=== PATIENT | female | born 1995 | race Caucasian/White ===

== ENCOUNTER 2018-10-10 16:25 | Emergency (ER) | payer BC, OTHER ==
[2018-10-10] MEDS ORDERED: METOCLOPRAMIDE 10 MG/2 ML VIAL IVP ONE (18:30)
[2018-10-10] MEDS ORDERED: DEXAMETHASONE 10 MG/ML VIAL IVP ONE (18:30)
--- NOTE | 2018-10-10 18:34 | EDPHY ---
H & P Stated Complaint: headache no trauma x 3 days--feels like her usual "migraine" Time Seen by Provider: 10/10/18 17:51 HPI/ROS: CHIEF COMPLAINT: Migraine headache HISTORY OF PRESENT ILLNESS: 22-year-old female presents with a 3 day history of migraine headache. Onset of headache 2 days ago. The headache is right- sided and throbbing, associated with photophobia and nausea. The headache is currently mild, 3/10, but sometimes have increased to moderate. Ibuprofen, Aleve, Excedrin and Imitrex without relief. Similar to prior migraine headaches , but lasting longer. She takes Topamax daily for headaches. REVIEW OF SYSTEMS: complete 10 point ROS reviewed and is negative except for the noted elements in the HPI - Personal History LMP (Females 10-55): IUD In Place - Medical/Surgical History Hx Asthma: No Hx Chronic Respiratory Disease: No Hx Diabetes: No Hx Renal Disease: No Hx Cirrhosis: No Hx Alcoholism: No Hx HIV/AIDS: No Hx Splenectomy or Spleen Trauma: No Other PMH: migraines (lisinopril used for migraines) - Social History Smoking Status: Never smoked Alcohol Use: Sober - Physical Exam Exam: General Appearance: Alert, pleasant Eyes: Pupils equal and round, no conjunctival pallor ENT, Mouth: Mucous membranes moist Neck: Normal inspection Respiratory: Lungs are clear to auscultation Cardiovascular: Regular rate and rhythm Gastrointestinal: Abdomen is soft and nontender Neurological: Alert, oriented x3, cranial nerves II through XII intact, motor 5 /5, sensory intact to light touch, normal gait Skin: Warm and dry Extremities: Normal inspection Psychiatric: Mood and affect normal Constitutional: Initial Vital Signs Temperature (C) 36.7 C 10/10/18 16:50 Heart Rate 87 10/10/18 16:50 Respiratory Rate 16 10/10/18 16:50 Blood Pressure 106/68 10/10/18 16:50 O2 Sat (%) 97 10/10/18 16:50 O2 Delivery Mode Room Air Allergies/Adverse Reactions: No Known Allergies Allergy (Unverified 10/10/18 16:50) Home Medications: Medication Instructions Recorded Lisinopril 10/10/18 Montelukast Sodium 10/10/18 Topamax 10/10/18 Medical Decision Making ED Course/Re-evaluation: This patient presents with a typical migraine headache. Reglan, Benadryl and Decadron IV given. Patient feels much better after medications and like to go home. Differential Diagnosis: Headache including but not limited to subarachnoid hemorrhage, migraine headache , tension headache and infectious causes such as meningitis, pharyngitis and sinusitis. - Data Points Medications Given: Discontinued Medications Dexamethasone (Decadron Injection) 10 mg IVP EDNOW ONE Stop: 10/10/18 18:31 Last Admin: 10/10/18 18:40 Dose: 10 mg Diphenhydramine HCl (Benadryl Injection) 25 mg IVP EDNOW ONE Stop: 10/10/18 18:31 Last Admin: 10/10/18 18:40 Dose: 25 mg Sodium Chloride (Ns) 1,000 mls @ 0 mls/hr IV ONCE ONE; Wide Open PRN Reason: Protocol Stop: 10/10/18 18:36 Last Admin: 10/10/18 18:40 Dose: 1,000 mls Metoclopramide HCl (Reglan Injection) 10 mg IVP EDNOW ONE Stop: 10/10/18 18:31 Last Admin: 10/10/18 18:40 Dose: 10 mg Departure - Departure Disposition: Home, Routine, Self-Care Clinical Impression: Migraine headache Condition: Good Instructions: Migraine Headache (ED) Referrals: Delfino Vera MD [Medical Doctor] - As per Instructions
[2018-10-10] MEDS ORDERED: NS 1,000 ML IV ONE (18:35)
[2018-10-10 19:53] VITALS: BP 101/58
== END 2018-10-10 19:53 | disposition home or self-care (01) ==
DX: G43.909 Migraine, unspecified, not intractable, without status migrainosus (principal); E86.9 Volume depletion, unspecified
CPT/HCPCS: 96374; J1100; J1200; J2765

== ENCOUNTER 2018-10-12 16:04 | Emergency (ER) | payer OTHER ==
[2018-10-12] MEDS ORDERED: NS 1,000 ML IV ONE (16:22)
[2018-10-12] MEDS ORDERED: KETOROLAC 15 MG/1 ML SDV IVP/IM ONE (16:22)
[2018-10-12] MEDS ORDERED: HALOPERIDOL LACT 5 MG/ML INJ IVP ONE (16:22)
--- NOTE | 2018-10-12 16:28 | EDPHY ---
H & P Stated Complaint: JC Time Seen by Provider: 10/12/18 16:15 HPI/ROS: CHIEF COMPLAINT: Continued migraine HISTORY OF PRESENT ILLNESS: Patient is a 22-year-old female who comes to the emergency department complaining of persistent right-sided migraine. Occasional visual symptoms and photophobia. Also intermittent nausea but no vomiting. She was seen here on Friday with similar symptoms and felt slightly better after Reglan, fluids, Benadryl and Decadron. After returning home however headache resumed. She has been taking Topamax and sumatriptan at home without relief. No rash. No weakness or neurologic deficits. No fever. No trauma. No neck pain. She states that this is similar to previous migraines however more persistent. She would like to pursue imaging. Severity: Moderate Modifying factors: See above REVIEW OF SYSTEMS: Constitutional: denies: chills, fever, recent illness, recent injury EENTM: denies: blurred vision, double vision, nose congestion Respiratory: denies: cough, shortness of breath Cardiac: denies: chest pain, irregular heart rate, lightheadedness, palpitations Gastrointestinal/Abdominal: denies: abdominal pain, diarrhea, nausea, vomiting, blood streaked stools Genitourinary: denies: dysuria, frequency, hematuria, pain Musculoskeletal: denies: joint pain, muscle pain Skin: denies: lesions, rash, jaundice, bruising Neurological: See HPI denies: numbness, paresthesia, tingling, dizziness, weakness Hematologic/Lymphatic: denies: blood clots, easy bleeding, easy bruising Immunologic/allergic: denies: HIV/AIDS, transplant 10 systems reviewed and negative except as noted EXAM: GENERAL: Well-appearing, well-nourished and in no acute distress. HEAD: Atraumatic, normocephalic. EYES: Pupils equal round and reactive to light, extraocular movements intact, sclera anicteric, conjunctiva are normal. ENT: TMs normal, nares patent, oropharynx clear without exudates. Moist mucous membranes. NECK: Normal range of motion, supple without lymphadenopathy or JVD. LUNGS: Breath sounds clear to auscultation bilaterally and equal. No wheezes rales or rhonchi. HEART: Regular rate and rhythm without murmurs, rubs or gallops. ABDOMEN: Soft, nontender, normoactive bowel sounds. No guarding, no rebound. No masses appreciated. BACK: No CVA tenderness, no spinal tenderness, step-offs or deformities EXTREMITIES: Normal range of motion, no pitting or edema. No clubbing or cyanosis. NEUROLOGICAL: Cranial nerves II through XII grossly intact. Normal speech, normal gait. 5/5 strength, normal movement in all extremities, normal sensation , normal reflexes PSYCH: Normal mood, normal affect. SKIN: Warm, dry, normal turgor, no visible rashes or lesions. Source: Patient Exam Limitations: No limitations - Personal History Current Tetanus/Diphtheria Vaccine: Yes Current Tetanus Diphtheria and Acellular Pertussis (TDAP): Yes - Medical/Surgical History Hx Asthma: No Hx Chronic Respiratory Disease: No Hx Diabetes: No Hx Cardiac Disease: No Hx Renal Disease: No Hx Cirrhosis: No Hx Alcoholism: No Hx HIV/AIDS: No Hx Splenectomy or Spleen Trauma: No Other PMH: migraines (lisinopril used for migraines) - Family History Significant Family History: No pertinent family hx - Social History Smoking Status: Never smoked Alcohol Use: None Constitutional: Initial Vital Signs Temperature (C) 37 C 10/12/18 16:10 Heart Rate 74 10/12/18 16:10 Respiratory Rate 16 10/12/18 16:10 Blood Pressure 126/87 H 10/12/18 16:10 O2 Sat (%) 99 10/12/18 16:10 O2 Delivery Mode Room Air Allergies/Adverse Reactions: No Known Allergies Allergy (Unverified 10/12/18 16:10) Home Medications: Medication Instructions Recorded Lisinopril 10/10/18 Montelukast Sodium 10/10/18 Topamax 10/10/18 Almotriptan Malate 10/12/18 Prochlorperazine Maleate 10 mg PO TID #30 tab 10/12/18 [Compazine 10mg (*)] SUMAtriptan 10/12/18 Medical Decision Making - Diagnostics Imaging: 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 we discussed the patient's CT and lab work which is reassuring. She feels better but not completely better. She declines further medications. She would prefer to go home and sleep in her own bed. I will write her prescription for Compazine. She will continue to take sumatriptan and Topamax as previously prescribed. Will refer to neurology. She declines further workup or testing at this time discussed indications for returning Differential Diagnosis: Partial list of the Differential diagnosis considered include but were not limited to; migraine, aneurysm, mass and although unlikely based on the history and physical exam, I also considered section, neuropathy, CVA, MS. I discussed these differential diagnoses and the plan with the patient as well as the usual and expected course. The patient understands that the diagnosis is provisional and that in medicine we are not always correct and that further workup is often warranted. Usual and customary warnings were given. All of the patient's questions were answered. The patient was instructed to return to the emergency department should the symptoms at all worsen or return, otherwise to followup with the physician as we discussed. - Data Points Laboratory Results: Laboratory Results 10/12/18 16:35 10/12/18 16:35 Medications Given: Discontinued Medications Haloperidol Lactate (Haldol Injection) 5 mg IVP EDNOW ONE Stop: 10/12/18 16:23 Last Admin: 10/12/18 16:38 Dose: 5 mg Sodium Chloride (Ns) 1,000 mls @ 3,000 mls/hr IV EDNOW ONE Stop: 10/12/18 16:41 Last Admin: 10/12/18 16:37 Dose: 1,000 mls Ketorolac Tromethamine (Toradol) 15 mg IVP/IM EDNOW ONE Stop: 10/12/18 16:23 Last Admin: 10/12/18 16:38 Dose: 15 mg Departure - Departure Disposition: Home, Routine, Self-Care Clinical Impression: Migraine Qualifiers: Migraine type: unspecified Status migrainosus presence: without status migrainosus Intractability: not intractable Qualified Code(s): G43.909 - Migraine, unspecified, not intractable, without status migrainosus Condition: Fair Instructions: Migraine Headache (ED) Referrals: NONE *PRIMARY CARE P,. [Primary Care Provider] - As per Instructions Polo Villanueva DO [Medical Doctor] - 5-7 days, if not improved Prescriptions: Prochlorperazine Maleate [Compazine 10mg (*)] 10 mg PO TID #30 tab
[2018-10-12 16:57] LABS: PLATELET COUNT 277 10^3/uL (150-400)
[2018-10-12] MEDS ORDERED: IOPAMIDOL (ISOVUE 370) 100 ML BTL IV ONE (17:16)
[2018-10-12 19:11] VITALS: BP 99/64
== END 2018-10-12 19:11 | disposition home or self-care (01) ==
DX: G43.909 Migraine, unspecified, not intractable, without status migrainosus (principal)
CPT/HCPCS: 96374; J1630; J1885; Q9967